=== PATIENT | female | born 1935 | race Caucasian/White ===

== ENCOUNTER → 2019-07-17 | Outpatient (CLI) | payer OTHER ==
[~2019-07-17] MED LIST: ASPI500; ASPI500 PO; CEPH250A PO; CLOP75; ENOX60I SC; FLUV20; FLUV40; HYDACE5 PO; LEVSOD100; LEVSOD50; LEVSOD75; LIDO5TP; LOSA25 PO; MEPE50 PO; METO5A PO; RANI150; ROSU10TA; SYNTHROID; Synthroid50 MCG PO; VENL37.5ER; VENL37.5ER PO; WARF5 PO; ZOLP10 PO
== END | disposition home or self-care (01) ==
LOC: LAB SHORT 09:40 → PLD 09:40
DX: D22.72 Melanocytic nevi of left lower limb, including hip (principal)
CPT/HCPCS: 88305

== ENCOUNTER → 2020-09-07 | Outpatient (CLI) | payer OTHER ==
[~2020-09-07] MED LIST changes: +ASPI81CH PO; +XARELTO15 M1 PO
== END | disposition home or self-care (01) ==
LOC: LAB SHORT 10:04 → PLD 10:04
DX: D22.5 Melanocytic nevi of trunk (principal)
CPT/HCPCS: 88305